=== PATIENT | female | born 1985 | race Caucasian/White ===

== ENCOUNTER 2019-10-22 19:03 | Emergency (ER) | payer OTHER ==
[~2019-10-22] VITALS: Ht 170.2 cm; Wt 88.5 kg
[2019-10-22] MEDS ORDERED: PAROXETINE CR12.5 MG PO (19:08)
[2019-10-22] MEDS ORDERED: HYDROCHLOROTHIA25 M1 PO (19:09)
[2019-10-22] MEDS ORDERED: ZANAFLEX4 MG PO (20:16)
[2019-10-22 21:24] VITALS: BP 148/89
== END 2019-10-22 21:25 | disposition home or self-care (01) ==
LOC: ER 19:03
DX: S00.93XA Contusion of unspecified part of head, initial encounter (principal); S16.1XXA Strain of muscle, fascia and tendon at neck level, initial encounter; I10 Essential (primary) hypertension; F17.210 Nicotine dependence, cigarettes, uncomplicated; Z88.1 Allergy status to other antibiotic agents; Z90.710 Acquired absence of both cervix and uterus; V49.9XXA Car occupant (driver) (passenger) injured in unspecified traffic accident, initial encounter; Y93.89 Activity, other specified; Y92.89 Other specified places as the place of occurrence of the external cause; Y99.8 Other external cause status

== ENCOUNTER 2019-12-08 21:32 | Emergency (ER) | payer OTHER ==
[~2019-12-08] VITALS: Ht 170.2 cm; Wt 90.7 kg
[~2019-12-08 21:32] MED LIST: HYDROCHLOROTHIA25 M1 PO; PAROXETINE CR12.5 MG PO; ZANAFLEX4 MG PO
[2019-12-08 23:12] LABS: ABSOLUTE NEUTROPHILS 9.2 thou/uL (1.4-8.2); BASOPHILS 0.5 % (0.0-2.0); EOSINOPHILS 0.5 % (0.0-3.0); HEMATOCRIT 39.9 % (37.0-47.0); HEMOGLOBIN 13.6 gm/dL (12.0-15.0); LYMPHOCYTES 16.8 % (24.0-44.0); MCV 91.2 fL (80.0-100.0); PLATELET COUNT 300 thou/uL (150-400); POLYS 72.2 % (36.0-66.0); RBC 4.38 mil/uL (4.20-5.00); RDW 12.4 % (10.5-14.5); WBC 12.8 thou/uL (4.0-11.0)
[2019-12-08 23:17] LABS: CALCIUM 9.5 mg/dL (8.5-10.1); CREATININE 0.9 mg/dL (0.6-1.0)
[2019-12-08 23:20] LABS: POTASSIUM 2.9 mmol/L (3.5-5.1)
[2019-12-09 02:36] VITALS: BP 127/93
== END 2019-12-09 02:37 | disposition home or self-care (01) ==
LOC: ER 21:32
PROVIDERS: Emergency Medicine Emergency Medical Services
DX: J06.9 Acute upper respiratory infection, unspecified (principal); R68.89 Other general symptoms and signs; I10 Essential (primary) hypertension; F17.210 Nicotine dependence, cigarettes, uncomplicated; Z88.1 Allergy status to other antibiotic agents; Z90.710 Acquired absence of both cervix and uterus

== ENCOUNTER → 2020-03-10 | Outpatient (CLI) | payer OTHER | LOC: MRI 14:37 | PROVIDERS: ATTEND Psychiatry & Neurology Neuromuscular Medicine | DX: J01.00 Acute maxillary sinusitis, unspecified (principal); J32.2 Chronic ethmoidal sinusitis; Z87.828 Personal history of other (healed) physical injury and trauma ==

== ENCOUNTER 2020-06-17 17:32 | Emergency (ER) | payer OTHER ==
[~2020-06-17] VITALS: Ht 170.2 cm; Wt 88.5 kg
[2020-06-17 17:36] VITALS: BP 149/96
[2020-06-17] MEDS ORDERED: NORCO 5-325 TA1 EAC2 PO (18:49)
== END 2020-06-17 18:52 | disposition home or self-care (01) ==
LOC: ER 17:32
DX: S46.002A Unspecified injury of muscle(s) and tendon(s) of the rotator cuff of left shoulder, initial encounter (principal); I10 Essential (primary) hypertension; F17.210 Nicotine dependence, cigarettes, uncomplicated; Z90.710 Acquired absence of both cervix and uterus; Z79.899 Other long term (current) drug therapy; Z88.8 Allergy status to other drugs, medicaments and biological substances; X50.1XXA Overexertion from prolonged static or awkward postures, initial encounter; Y93.89 Activity, other specified; Y92.89 Other specified places as the place of occurrence of the external cause; Y99.8 Other external cause status

== ENCOUNTER 2020-09-28 19:11 | Inpatient (IN) | payer OTHER ==
[~2020-09-28] VITALS: Ht 170.2 cm; Wt 89.8 kg
[~2020-09-28 19:11] MED LIST changes: +NORCO 5-325 TA1 EAC2 PO
[2020-09-28 19:15] VITALS: BP 161/101
[2020-09-28 19:38] LABS: BASOPHILS 0.7 % (0.0-2.0); EOSINOPHILS 3.8 % (0.0-3.0); HEMATOCRIT 39.5 % (37.0-47.0); HEMOGLOBIN 13.5 gm/dL (12.0-15.0); LYMPHOCYTES 27.2 % (24.0-44.0); MCH 31.2 pg (26.0-34.0); MCHC 34.2 g/dL (28.0-37.0); MCV 91.4 fL (80.0-100.0); MONOCYTES 8.4 % (1.0-8.0); PLATELET COUNT 314 thou/uL (150-400); POLYS 59.9 % (36.0-66.0); RBC 4.32 mil/uL (4.20-5.00); RDW 12.8 % (10.5-14.5); WBC 13.3 thou/uL (4.0-11.0)
[2020-09-28 19:49] LABS: ANION GAP 10 mmol/L (7-16); BUN 8 mg/dL (7-18); CALCIUM 9.5 mg/dL (8.5-10.1); CHLORIDE 102 mmol/L (98-107); CO2 24 mmol/L (21-32); CREATININE 1.2 mg/dL (0.6-1.0); GLUCOSE 109 mg/dL (74-106); POTASSIUM 3.9 mmol/L (3.5-5.1); SODIUM 136 mmol/L (136-145)
[2020-09-28 19:51] LABS: DIRECT BILIRUBIN < 0.1 mg/dL (<0.1-0.2); SGOT 10 U/L (15-37); SGPT 25 U/L (14-59); TOTAL BILIRUBIN 0.3 mg/dL (0.2-1.0); TOTAL PROTEIN 7.8 g/dL (6.4-8.2)
[2020-09-28] MEDS ORDERED: COZAAR 25 MG TA25 M1 PO (20:10)
[2020-09-28] MEDS ORDERED: OMEPRAZOLE 20 M20 M1 PO (20:10)
[2020-09-28 22:33] LABS: URINE BILIRUBIN NEGATIVE (Negative); URINE BLOOD NEGATIVE (Negative); URINE CLARITY CLEAR; URINE COLOR YELLOW; URINE GLUCOSE-RANDOM* NEGATIVE (Negative); URINE KETONES NEGATIVE (Negative); URINE LEUKOCYTES-REFLEX TRACE (Negative); URINE NITRITE-REFLEX NEGATIVE (Negative); URINE PROTEIN (DIPSTICK) NEGATIVE (Negative); URINE SPECIFIC GRAVITY <= 1.005 (1.005-1.035); URINE UROBILINOGEN 0.2 E.U./dl (0.2-1.0)
[2020-09-28 23:30] VITALS: BP 143/75
[2020-09-28 23:39] VITALS: BP 153/78
[2020-09-29 00:01] VITALS: BP 119/70
--- NOTE | 2020-09-29 05:29 | NUR ---
PT AMBULATING TO BATHROOM INDEPENDENTLY AND IS TOLERATING WELL. FENTANYL PROVIDING PAIN RELIEF. DENIES NAUSEA. ARRIVED FROM ER AT 0000 WITH DIAGNOSIS OF ABDOMINAL PAIN.RESTING COMFORTABLY. NO NEEDS VOICED. CALL LIGHT WITHIN REACH. FREQUENT OBSERVATION.
[2020-09-29 06:05] LABS: HEMATOCRIT 35.9 % (37.0-47.0); MCHC 33.4 g/dL (28.0-37.0); MCV 92.8 fL (80.0-100.0); RBC 3.87 mil/uL (4.20-5.00); RDW 13.2 % (10.5-14.5); WBC 7.5 thou/uL (4.0-11.0)
[2020-09-29 06:15] LABS: CALCIUM 8.5 mg/dL (8.5-10.1); POTASSIUM 4.1 mmol/L (3.5-5.1)
[2020-09-29 07:00] VITALS: BP 121/81
[2020-09-29 16:05] VITALS: BP 130/79
--- NOTE | 2020-09-29 16:45 | NUR ---
ASSESSMENT-PT LIVES IN A HOUSE WITH HER CHILDREN. SHE IS INDEPENDENT OF ADLS AND AMBULATION. SHE HAS HER MOM SUPPORT. PT VOICES NO CONCERNS RELATED TO DC. PT HAS NOT HAD ANY HH SERVICES AND USES NO DME. NO DC NEEDS ARE ANTICIPATED.
[2020-09-29 21:00] VITALS: BP 136/84
--- NOTE | 2020-09-30 02:45 | NUR ---
ASSUMED PT CARE AT 1900.PT C/O ABD PAIN,MANGED WITH MED.PT UP ADLIB IN THE ROOM.PT CONT ON IVF AND IV ABX ORDERED.PT SLEEPING ON HER BED AT THIS TIME.CALL LIGHT WITHIN REACH.
[2020-09-30 07:25] VITALS: BP 115/68
--- NOTE | 2020-09-30 09:11 | NUR ---
COVID 19 TEST COMPLETED AT THIS TIME RIGHT DEEDEEE. WILL TAKE TO LAB.
[2020-09-30 10:45] LABS: ALBUMIN 3.4 g/dL (3.4-5.0); CALCIUM 8.7 mg/dL (8.5-10.1); CREATININE 0.9 mg/dL (0.6-1.0); POTASSIUM 3.9 mmol/L (3.5-5.1); TOTAL BILIRUBIN 0.2 mg/dL (0.2-1.0); TOTAL PROTEIN 6.8 g/dL (6.4-8.2)
[2020-09-30 12:58] VITALS: BP 115/68
[2020-09-30 14:22] VITALS: BP 115/68
[2020-09-30 14:42] VITALS: BP 115/68
--- NOTE | 2020-10-02 13:02 | NUR ---
PATIENT REQUESTED PRN IV PAIN ON 09/30/20, STUDENT NURSE AND INSTRUCTOR HAD GIVEN SO WAS TOO SOON FOR THIS NURSE TO GIVE. PUT IN POCKET TO WASTE, FOUND MED IN POCKET CAME TO FACILITY CALLED PHARMACY AND HE SAID TO FILL OUT YELLOW PAPER AND WASTE WITH RN THAT WAS HERE ON 09/30/20.
--- NOTE | 2020-10-02 13:08 | NUR ---
LATE ENTRY ON 09/30/20 DR SOLOMON ORDERED COVID 19 TEST THIS NURSE COMPLETED AND SENT TO LAB. PATIENT WAS DCD BEFORE RESULTS BACK PER DR MARCANO. LATER RESULTS CAME BACK PSITIVE PATIENT'S MOTHER CALLED AND WAS GIVEN RESULTS. DR MARCANO NOTIFIED OF RESULTS. NO NEW ORDERS OTHER THAN TO HAVE PATIENT SELF QUARATINE. VERGE REPORT ALSO PUT IN COMPUTER.
== END 2020-09-30 15:31 | disposition home or self-care (01) | DRG 871 ==
LOC: ER 19:11 → EROBS 22:19 → 4S 22:19
PROVIDERS: Emergency Medicine; Nurse Practitioner Family; ADMIT Hospitalist; ATTEND Hospitalist
DX: A41.9 Sepsis, unspecified organism (principal); N17.0 Acute kidney failure with tubular necrosis; N39.0 Urinary tract infection, site not specified; I10 Essential (primary) hypertension; K52.9 Noninfective gastroenteritis and colitis, unspecified; F32.9 Major depressive disorder, single episode, unspecified; K21.9 Gastro-esophageal reflux disease without esophagitis; F17.210 Nicotine dependence, cigarettes, uncomplicated; G43.909 Migraine, unspecified, not intractable, without status migrainosus; Z20.822 Contact with and (suspected) exposure to COVID-19; Z90.711 Acquired absence of uterus with remaining cervical stump; Z79.899 Other long term (current) drug therapy; Z88.1 Allergy status to other antibiotic agents; Z23 Encounter for immunization
CPT/HCPCS: 10102

== ENCOUNTER 2021-03-03 11:24 | Emergency (ER) | payer OTHER ==
[~2021-03-03] VITALS: Ht 170.2 cm; Wt 90.7 kg
[~2021-03-03 11:24] MED LIST changes: +COZAAR 25 MG TA25 M1 PO; +OMEPRAZOLE 20 M20 M1 PO
[2021-03-03] MEDS ORDERED: COMPAZINE10 M2 PO (17:15)
[2021-03-03] MEDS ORDERED: MEDROLDOSEPACK PO (17:15)
[2021-03-03 17:36] VITALS: BP 125/79
== END 2021-03-03 17:38 | disposition home or self-care (01) ==
LOC: ER 11:24
DX: G43.909 Migraine, unspecified, not intractable, without status migrainosus (principal); K21.9 Gastro-esophageal reflux disease without esophagitis; F17.210 Nicotine dependence, cigarettes, uncomplicated; Z88.1 Allergy status to other antibiotic agents; Z79.899 Other long term (current) drug therapy; Z90.710 Acquired absence of both cervix and uterus